=== PATIENT | female | born 1960 | race Caucasian/White ===

== ENCOUNTER 2017-07-12 17:17 | Emergency (ER) | payer OTHER ==
[~2017-07-12] VITALS: Ht 157.5 cm; Wt 69.4 kg
[2017-07-12 17:29] VITALS: Ht 157.5 cm; Wt 69.4 kg
[2017-07-12 21:09] VITALS: BP 113/70
== END 2017-07-12 21:09 | disposition home or self-care (01) ==
LOC: ED 17:17
DX: R07.89 Other chest pain (principal); R51 Headache; I10 Essential (primary) hypertension
CPT/HCPCS: 82962; J1200; J2765